=== PATIENT | male | born 2000 | race Two or more races ===

== ENCOUNTER 2023-12-21 00:53 | Inpatient (IN) | payer MEDICAID, OTHER ==
[~2023-12-21] VITALS: Ht 177.8 cm; Wt 99.6 kg
[2023-12-21 01:41] LABS: BASOPHILS % (AUTO) 1.3 % (0.0-2.0); EOSINOPHILS % (AUTO) 3.6 % (1.0-6.0); HEMOGLOBIN 15.6 g/dL (13.5-17.5); LYMPHOCYTES # (AUTO) 2.3 K/uL (1.0-4.8); LYMPHOCYTES % (AUTO) 19.4 % (22.0-44.0); MEAN CORPUSCULAR HEMOGLOBIN 31.6 pg (26.0-34.0); MEAN CORPUSCULAR HGB CONC 33.8 G/dL (31.0-37.0); MEAN CORPUSCULAR VOLUME 93 fL (80-100); MONOCYTES # (AUTO) 0.9 K/uL (0.1-1.0); MONOCYTES % (AUTO) 7.3 % (2.0-9.0); NEUTROPHILS # (AUTO) 8.1 K/uL (1.8-7.7); NEUTROPHILS % (AUTO) 68.4 % (40.0-70.0); PLATELET COUNT (AUTO) 314 K/uL (150-450); RED BLOOD CELL COUNT(AUTO) 4.93 MIL/uL (4.50-5.90); RED CELL DISTRIBUTION WIDTH 13.3 % (11.5-14.5); WHITE BLOOD COUNT (AUTO) 11.8 K/uL (4.5-11.0)
[2023-12-21 01:47] LABS: ANION GAP 12 mmol/L (8-16); CALCIUM, TOTAL 8.7 mg/dL (8.8-10.5); CARBON DIOXIDE 26 mmol/L (22-29); CHLORIDE 102 mmol/L (98-107); CREATININE 1.05 mg/dL (0.60-1.30); GLOMERULAR FILTR. RATE CALC > 60 mL/min (>60); GLUCOSE,RANDOM 135 mg/dL (70-110); POTASSIUM 3.4 mmol/L (3.5-5.1); SODIUM SERUM 140 mmol/L (136-145); UREA NITROGEN, BLOOD 16 mg/dL (7-18)
[2023-12-21 01:53] LABS: ACETAMINOPHEN < 2 mcg/mL (10-30); ALANINE AMINOTRANSFERASE 35 U/L (12-78); ALBUMIN 4.2 g/dL (3.4-5.0); ALCOHOL, BLOOD (SERUM) < 3 mg/dL (0-10); ALKALINE PHOSPHATASE 65 U/L (46-116); ASPARTATE AMINOTRANSFERASE 22 U/L (15-37); BILIRUBIN,TOTAL 0.5 mg/dL (0.1-1.0); TOTAL PROTEIN, SERUM 7.1 g/dL (6.4-8.2)
[2023-12-21 02:23] LABS: SALICYLATE 0.5 mg/dL (2.8-20.0)
[2023-12-21] MEDS ORDERED: LORazepam 2 MG TABLET PO PRN (02:30)
[2023-12-21] MEDS ORDERED: ZOLPIDEM TARTRATE 10 MG TABLET PO PRN (02:30)
[2023-12-21] MEDS ORDERED: QUEtiapine FUMARATE 100 MG TABLET PO PRN (02:30)
[2023-12-21] MEDS: LORazepam 2 MG TABLET PO ONE (04:25)
[2023-12-21 09:43] LABS: COVID AG,FIA SOURCE NASAL SWAB
[2023-12-21 09:47] LABS: APPEARANCE,URINE CLEAR (CLEAR); BILIRUBIN,URINE NEGATIVE (NEGATIVE); COLOR,URINE LIGHT YELLOW (YELLOW); GLUCOSE, URINE (UA) NEGATIVE (NEGATIVE); KETONES,URINE NEGATIVE (NEGATIVE); LEUKOCYTE ESTERASE ,URINE NEGATIVE (NEGATIVE); NITRATE,URINE NEGATIVE (NEGATIVE); OCCULT BLOOD,URINE NEGATIVE (NEGATIVE); PROTEIN,URINE NEGATIVE (NEGATIVE); UROBILINOGEN,URINE <=1.0 mg/dL (<=1.0)
[2023-12-21 10:16] LABS: ALCOHOL, URINE DRUG SCREEN NEGATIVE (NEGATIVE); AMPHET/METH SCREEN,URINE NEGATIVE (NEGATIVE); BARBITURATE SCREEN, URINE NEGATIVE (NEGATIVE); BENZODIAZEPINES SCREEN,URINE NEGATIVE (NEGATIVE); CANNABINOID SCREEN,URINE NEGATIVE (NEGATIVE); COCAINE SCREEN,URINE NEGATIVE (NEGATIVE); METHADONE SCREEN, URINE NEGATIVE (NEGATIVE); OPIATE SCREEN,URINE NEGATIVE (NEGATIVE); PHENCYCLIDINE SCREEN,URINE NEGATIVE (NEGATIVE)
[2023-12-21 10:17] LABS: SARS-COV2 (COVID) ANTIGEN,FIA Negative (Negative)
[2023-12-21 10:54] VITALS: BP 145/97; PULSE 80; RESP 18; TEMP 97.8; O2SAT 98
[2023-12-21] MEDS ORDERED: PNEUMOCOCCAL VACCINE POLYVALENT 0.5 ML SYRINGE [PPSV23] IM. ONE (11:30)
[2023-12-21] MEDS ORDERED: PROMETHAZINE HCL 25 MG TABLET PO PRN (11:45)
[2023-12-21] MEDS ORDERED: MAGNESIUM HYDROXIDE SUSPENSION 30 ML UDCUP PO PRN (11:45)
[2023-12-21] MEDS ORDERED: MAG HYDROX/ALUMINUM HYD/SIMETH ES 30 ML SUSPENSION UDCUP PO PRN (11:45)
[2023-12-21] MEDS ORDERED: ACETAMINOPHEN 325 MG TABLET PO PRN (11:45)
[2023-12-21] MEDS ORDERED: GuaiFENesin/D-METHORPHAN [SUGAR-FREE] 200-20MG/10 ML SYRUP UDCUP PO PRN (11:45)
[2023-12-21] MEDS ORDERED: LOPERAMIDE HCL 2 MG CAPSULE PO PRN (11:45)
[2023-12-21] MEDS ORDERED: HydrOXYzine PAMOATE 50 MG CAPSULE PO PRN (11:45)
[2023-12-21] MEDS ORDERED: TUBERCULIN, PURIFIED PROTEIN DERIVATIVE 5 TU/0.1 ML SYRINGE ID ONE (11:45)
[2023-12-21] MEDS: POTASSIUM CHLORIDE 20 MEQ ER TABLET PO ONE (14:37)
[2023-12-21] MEDS: THIAMINE 100 MG TABLET PO SCH (18:49)
[2023-12-21] MEDS: MELATONIN 5 MG TABLET PO SCH (20:48)
[2023-12-21] MEDS ORDERED: CloNIDine HCL 0.1 MG TABLET PO PRN (21:15)
[2023-12-21 21:39] VITALS: BP 123/74; PULSE 82; RESP 18; TEMP 98.7; O2SAT 98
[2023-12-22 07:31] LABS: BASOPHILS % (AUTO) 0.6 % (0.0-2.0); EOSINOPHILS % (AUTO) 4.4 % (1.0-6.0); HEMATOCRIT 48.9 % (41-53); HEMOGLOBIN 16.2 g/dL (13.5-17.5); LYMPHOCYTES # (AUTO) 2.1 K/uL (1.0-4.8); LYMPHOCYTES % (AUTO) 22.5 % (22.0-44.0); MEAN CORPUSCULAR HGB CONC 33.1 G/dL (31.0-37.0); MEAN CORPUSCULAR VOLUME 94 fL (80-100); MONOCYTES # (AUTO) 0.6 K/uL (0.1-1.0); MONOCYTES % (AUTO) 6.4 % (2.0-9.0); NEUTROPHILS # (AUTO) 6.1 K/uL (1.8-7.7); NEUTROPHILS % (AUTO) 66.1 % (40.0-70.0); PLATELET COUNT (AUTO) 311 K/uL (150-450); RED BLOOD CELL COUNT(AUTO) 5.23 MIL/uL (4.50-5.90); RED CELL DISTRIBUTION WIDTH 13.3 % (11.5-14.5); WHITE BLOOD COUNT (AUTO) 9.2 K/uL (4.5-11.0)
[2023-12-22 07:47] LABS: HEMOGLOBIN A1C 5.3 % (3.8-5.6)
[2023-12-22 08:12] VITALS: BP 132/79; PULSE 77; RESP 18; TEMP 97.8; O2SAT 97
[2023-12-22 08:13] LABS: FREE T4 (FREE THYROXINE) 0.61 ng/dL (0.76-1.46); THYROID STIMULATING HORMONE 3.28 uIU/mL (0.36-3.74)
[2023-12-22] MEDS: FOLIC ACID 1 MG TABLET PO SCH (09:20)
[2023-12-22] MEDS: OMEGA-3/DHA/EPA/FISH OIL 1,000 MG CAPSULE PO SCH (09:20)
[2023-12-22] MEDS: FLUoxetine HCL 20 MG CAPSULE PO SCH (09:20)
[2023-12-22] MEDS: MULTIVITAMINS WITH MINERALS, THERAPEUTIC TABLET PO SCH (09:20)
[2023-12-22] MEDS: DEXTROMETHORPHAN HBR/QUINIDINE 20/10 MG CAPSULE PO SCH (09:21)
[2023-12-22] MEDS ORDERED: FLUO20CA36 PO (16:24)
[2023-12-22] MEDS ORDERED: MELA5TAB40 PO (16:24)
[2023-12-22] MEDS ORDERED: OMEG-135 PO (16:24)
[2023-12-22 21:18] VITALS: BP 130/80; PULSE 78; RESP 18; TEMP 97.9; O2SAT 98
[2023-12-23 08:00] VITALS: BP 129/72; PULSE 73; RESP 19; TEMP 97; O2SAT 98
[2023-12-23] MEDS ORDERED: MELA5TAB40 PO (10:21)
[2023-12-23] MEDS ORDERED: FLUO20CA36 PO (10:21)
[2023-12-23] MEDS ORDERED: OMEG-135 PO (10:21)
== END 2023-12-23 14:13 | disposition home or self-care (01) | DRG 751 ==
LOC: EMS 00:54 → 3EI 09:27
PROVIDERS: ADMIT Psychiatry & Neurology Psychiatry; ATTEND Psychiatry & Neurology Psychiatry
PROC: GZHZZZZ Group Psychotherapy (ICD-10-PCS; principal; 2023-12-22)
PROC: GZ51ZZZ Individual Psychotherapy, Behavioral (ICD-10-PCS; 2023-12-22)
PROC: GZ56ZZZ Individual Psychotherapy, Supportive (ICD-10-PCS; 2023-12-22)
DX: F32.2 Major depressive disorder, single episode, severe without psychotic features (principal); Z91.148 Patient's other noncompliance with medication regimen for other reason; D72.829 Elevated white blood cell count, unspecified; R03.0 Elevated blood-pressure reading, without diagnosis of hypertension; E87.6 Hypokalemia; Z20.822 Contact with and (suspected) exposure to COVID-19; T39.312A Poisoning by propionic acid derivatives, intentional self-harm, initial encounter; Y92.89 Other specified places as the place of occurrence of the external cause
CPT/HCPCS: 80053; 80061; 80307; 81003; 83036; 84132; 84439; 84443; 85025; 86592; 93005; 99291; G0480; G0481; Q9967